=== PATIENT | male | born 1970 | race Caucasian/White ===

== ENCOUNTER 2020-08-13 16:15 | Emergency (ER) | payer OTHER ==
[~2020-08-13] VITALS: Ht 185.4 cm; Wt 100.0 kg
[2020-08-13] MEDS ORDERED: LIDOCAINE 2%/EPI 1:100,000 20 ML VIAL. IJ ONE (16:30)
[2020-08-13] MEDS ORDERED: OMEP10CA (16:38)
[2020-08-13 16:45] VITALS: BP 149/89
[2020-08-13] MEDS ORDERED: DIPH,PERTUSS(ACELL),TET VAC/PF 0.5 ML SYRINGE. VAX IM ONE (16:45)
[2020-08-13] MEDS ORDERED: BACITRACIN ZINC TOPICAL OINT PACKET. TP ONE (16:45)
[2020-08-13] MEDS ORDERED: CEPH-264 PO (17:17)
--- NOTE | 2020-08-13 17:18 | PHYS DOC ---
Past History Past Medical History: Hypertension Alcohol Use: Occasionally Adult General Chief Complaint Chief Complaint: LACERATION/AVULSION HPI HPI Patient is a 50-year-old male [facility] emergency department complaining of a laceration to his left hand. Patient states he was carrying out the trash when a piece of broken glass bowl lacerated his left hand at approximately 1330 today. Patient states that it started bleeding so he applied direct pressure to control the bleeding, patient states that he washed it with soap water, noticed that it continued to bleed and feared there might be an arterial component to it so he came to the emergency department for evaluation. Patient reports that he would normally have just attempted to repair his laceration at home, but he felt that it was too extensive to do this. Patient denies any numbness or tingling to his left hand, denies any loss of movement. Patient cannot rate a pain scale of 1-10, does states that it hurts mildly. Patient reports his last tetanus immunization was greater than 5 years ago. Patient denies any other physical complaints or physical concerns. Review of Systems Review of Systems 14 body systems of review of systems have been reviewed. See HPI for pertinent positives and negative responses, otherwise all other systems are negative, nonpertinent or noncontributory. Current Medications Current Medications Current Medications Medications (Trade) Dose Ordered Sig/Vidhi Start Time Stop Time Status Last Admin Dose Admin Bacitracin (Bacitracin Topical Pkt) 1 pkt 1X ONCE 08/13/20 16:45 08/13/20 16:46 DC Diphtheria/ Pertussis/Tetanus Vacc (ADACEL TDap SYRINGE) 0.5 ml ONCE ONCE 08/13/20 16:45 08/13/20 16:46 DC Lidocaine/ Epinephrine (Xylocaine 2%-Epi 1:100,000) 20 ml 1X ONCE 08/13/20 16:30 08/13/20 16:39 DC Allergies Allergies Allergies Coded Allergies Type Severity Reaction Last Updated Verified No Known Drug Allergies 08/13/20 No Physical Exam Physical Exam Constitutional: Well developed, well nourished, no acute distress, non-toxic appearance. HENT: Normocephalic, atraumatic, bilateral external ears normal, oropharynx moist, no oral exudates, nose normal. Eyes: PERRLA, EOMI, conjunctiva normal, no discharge. Neck: Normal range of motion, no tenderness, supple, no stridor. Cardiovascular:Heart rate regular rhythm, no murmur Lungs & Thorax: Bilateral breath sounds clear to auscultation Abdomen: Bowel sounds normal, soft, no tenderness, no masses, no pulsatile masses. Skin: Warm, dry, no erythema, no rash. 2.5 cm laceration to left hand palmar aspect linear shape consistent with laceration from glass, directly between metacarpals 1 and 2 and web upon, partial-thickness laceration into adipose tissue does not extend into muscle fascia. Distal cap refill less than 2 seconds, no swelling, no deformity noted, neurovascular intact, mild oozing of blood controlled with gauze dressing. Back: No tenderness, no CVA tenderness. Extremities: No tenderness, no cyanosis, no clubbing, ROM intact, no edema. Neurologic: Alert and oriented X 3, normal motor function, normal sensory function, no focal deficits noted. Psychologic: Affect normal, judgement normal, mood normal. Current Patient Data Vital Signs Vital Signs Date Time Temp Pulse Resp B/P (MAP) Pulse Ox O2 Delivery O2 Flow Rate FiO2 08/13/20 16:45 98.4 82 16 149/89 (109) 97 Room Air EKG EKG [] Radiology/Procedures Radiology/Procedures [] Heart Score Risk Factors: Risk Factors: DM, Current or recent (<one month) smoker, HTN, HLP, family history of CAD, obesity. Risk Scores: Risk Factors: DM, Current or recent (<one month) smoker, HTN, HLP, family history of CAD, obesity. Course & Med Decision Making Course & Med Decision Making Pertinent Labs and Imaging studies reviewed. (See chart for details) 50-year-old male presents emergency department laceration left hand, see laceration repair procedure note, patient's tetanus immunization was brought up-to-date in the emergency department today, related to laceration from broken glass from a trash bag patient was placed prophylactically on p.o. Keflex, patient gave verbal understanding of suture care and sutures removed in 7 to 10 days, gave verbal understanding of signs and symptoms of infection, return to emergency department precautions or concerns, follow-up with primary care physician in 7 to 10 days to have sutures removed, had no further questions or concerns, discharged home without incident. Dragon Disclaimer Dragon Disclaimer This electronic medical record was generated, in whole or in part, using a voice recognition dictation system. Departure Departure: Impression: Primary Impression: Laceration of hand, left Disposition: 01 DC HOME SELF CARE/HOMELESS Condition: GOOD Referrals: MOJGAN PONCE (PCP) Patient Instructions: Laceration Care, Adult Additional Instructions: You have been evaluated for a laceration of your left hand, we have explored the wound in which there were no foreign bodies found are no glass particles, there was no tendon involvement which is encouraging. There are 5 sutures in your hand to repair this laceration, please keep clean and dry and dressing in place for the next 24 hours then you may wash gently with soap and water and place antibiotic ointment and bandage over hand. Have sutures removed in 7 to 10 days. I will start you on a oral antibiotic to prevent infection, I do not feel that there is an infectious process going on at this time, the antibiotic is just to prevent any possible infection that may arise. Please return to the emergency department for worsening symptoms or other concerns. Follow-up with your doctor soon for reevaluation of your sutures wound. EMERGENCY DEPARTMENT GENERAL DISCHARGE INSTRUCTIONS Thank you for coming to [facility] (ED) today and trusting us with you care. We trust that you had a positivie experience in our Emergency Department. If you wish to speak to the department management, you may call the director at [phone]. YOUR FOLLOW UP INSTRUCTIONS ARE FOLLOWS: 1. Do you have a private Doctor? If you do not have a private doctor, please ask for a resource list of physicians or clinics that may be able to assist you with follow up care. 2. The Emergency Physician has interpreted your x-rays. The X-Ray specialist will also review them. If there is a change in the findings, you will be notified in 48 hours when at all possible. 3. A lab test or culture has been done, your results will be reviewed and you will be notified if you need a change in treatment. ADDITIONAL INSTRUCTIONS AND INFORMATION: 1. Your care today has been supervised by a physician who is specially trained in emergency care. Many problems require more than one evaluation for a complete diagnosis and treatment. We recommend that you schedule your follow up appointment as recommended to ensure complete treatment of you illness or injury. If you are unable to obtain follow up care and continue to have a problem, or if your condition worsens, we recommend that you return to the ED. 2. We are not able to safely determine your condition over the phone nor are we able to give sound medical advice over the phone. For these safety reasons, if you call for medical advice we will ask you to come to the ED for further evaluation. 3. If you have any questions regarding these discharge instructions please call the ED at [phone]. SAFETY INFORMATION: In the interest of safety, wellness, and injury prevention; we encourage you to wear your sealbelt, if you smoke; quite smoking, and we encourage family to use a protective helmet for bicycling and other sporting events that present an increased risk for head injury. IF YOUR SYMPTOMS WORSEN OR NEW SYMPTOMS DEVELOP, OR YOU HAVE CONCERNS ABOUT YOUR CONDITION; OR IF YOUR CONDITION WORSENS WHILE YOU ARE WAITING FOR YOUR FOLLOW UP APPO INTMENT; EITHER CONTACT YOUR PRIMARY CARE DOCTOR, THE PHYSICIAN WHOSE NAME AND NUMBER YOU WERE GIVEN, OR RETURN TO THE ED IMMEDIATELY. Scripts Cephalexin (KEFLEX) 500 Mg Capsule 500 MG PO TID for SUTURED HAND WOUND for 7 Days, #21 CAP 0 Refills Prov: JUANCARLOS WILCOX APRN 08/13/20 Laceration Repair Lac Repair Indication: Laceration to left hand palmar aspect Procedure: The patient was placed in the appropriate position and anesthesia around the treated with 2% lidocaine with epinephrine 4 cc.. The area was then cleansed with chlorhexidine soap scrub brush and 500 cc pressurized normal saline with 60 cc syringe and Zerowet apparatus.. The laceration was explored and no foreign bodies or glass found, the laceration was closed with 5 interrupted sutures using 3-0 nylon suture. The laceration site was then dressed by ED truck body builder with topical bacitracin and gauze dressing. Patient remained neurovascular intact after suture procedure and dressing placement. Distal cap refill was less than 2 seconds, full AROM/PROM, negative tendon involvement. Total repaired wound length: 2.5 cm in length The patient tolerated the procedure well. Complications: No complications during laceration repair procedure. Problem Qualifiers Primary Impression: Laceration of hand, left Encounter type: initial encounter Foreign body presence: without foreign body Qualified Codes: S61.412A - Laceration without foreign body of left hand, initial encounter JUANCARLOS WILCOX APRN Aug 13, 2020 17:18
== END 2020-08-13 17:28 | disposition home or self-care (01) ==
LOC: ER 16:15
DX: S61.412A Laceration without foreign body of left hand, initial encounter (principal); I10 Essential (primary) hypertension; W25.XXXA Contact with sharp glass, initial encounter; Y93.89 Activity, other specified; Y92.89 Other specified places as the place of occurrence of the external cause; Y99.8 Other external cause status
CPT/HCPCS: 12001; 90471; 90715; 99283